=== PATIENT | male | born 1965 | race Caucasian/White ===

== ENCOUNTER → 2016-10-01 | Outpatient (CLI) | payer OTHER ==
[~2016-10-01] MED LIST: ASPIRIN81 M1 PO; CARAFATE1 GM PO; COQ10; FENOFIBRATE; FENOFIBRATE145 M1 PO; IPRATROPIUM BRO30 M1 NS; LIPITOR; LIPITOR80 MG PO; MOTRIN800 MG PO; NEXIUM40 MG PO; NEXIUM40 MG/PACK PO; NIACIN PO; NIACIN500 M5 PO; PERCOCET 325 MG1 TA2 PO; REGLAN10 M1 PO; VICODIN 5/500 505 MG PO; ZANTAC 300300 MG PO
--- NOTE | ~2016-10-01 | ST ---
[place], [place] EXERCISE STRESS TEST REPORT NAME: HERNANDEZ RASCON UNIT #: [id number] ROOM: DOCTOR: STEPHANI MUNROE MD BIRTHDATE: [birth year] DOS: 10/01/2016 The patient walked on a Vishnu protocol about 7 minutes. Heart rate is about 140, 85% of predicted heart rate. Procedure terminated with completion of protocol. Baseline cardiogram, sinus rhythm with exercise. No EKG changes. No chest pain. Blood pressure and heart rate response was normal. FINAL IMPRESSION: No EKG changes with exercise. No chest pain with exercise. No dysrhythmia with exercise. Blood pressure and heart rate response was normal. Nuclear images will be reported separately. STEPHANI MUNROE MD CM:STRESS:EXERCISE STRESS TEST REPORT [id number] NORM MUNROE MD
== END | disposition home or self-care (01) ==
LOC: CARD 09-24 08:30
DX: R07.9 Chest pain, unspecified (principal)

== ENCOUNTER → 2019-07-24 | Outpatient (CLI) | payer OTHER ==
[~2019-07-24] MED LIST changes: +DICYCLOMINE HCL10 MG PO; +ZANTAC 150150 MG PO
[2019-07-24 14:37] LABS: BASO # 0.1 10*3/uL (0.0-0.1); EOS # 0.1 10*3/uL (0.0-0.4); EOS % 1.4 % (1.0-4.0); HEMATOCRIT 51.4 % (42.0-52.0); HEMOGLOBIN 17.2 g/dl (14.0-18.0); LYMPH # 1.3 10*3/uL (1.3-4.4); LYMPH % 26.9 % (27.0-41.0); MEAN CELL VOLUME 83.8 fl (80.0-94.0); MEAN CORPUSCULAR HGB 28.1 pg (27.0-31.0); MEAN CORPUSCULAR HGB CONC 33.5 g/dl (33.0-37.0); MEAN PLATELET VOLUME 9.2 fl (9.6-12.3); MONO # 0.4 10*3/uL (0.1-1.0); NEUT % 61.3 % (47.0-73.0); PLATELET COUNT AUTOMATED 167 10*3/uL (130-400); RED BLOOD COUNT 6.13 10*6/uL (4.50-5.90); RED CELL DISTRI WIDTH 12.9 % (0-14.5); WHITE BLOOD COUNT 4.9 10*3/uL (4.8-10.8)
[2019-07-24 15:07] LABS: ALBUMIN 4.2 gm/dl (3.1-4.5); ALKALINE PHOSPHATASE 42 U/L (45-117); BUN 16 mg/dl (7-24); CHLORIDE 109 mmol/L (98-107); CHOLESTEROL 171 mg/dL (<200); CREATININE 1.42 mg/dL (0.70-1.30); HDL CHOLESTEROL 34 mg/dl (40-60); LDL CHOLESTEROL 102 mg/dL (9-159); SGOT/AST 25 IU/L (3-35); SGPT/ALT 38 U/L (12-78); SODIUM 140 mmol/L (136-145); TRIGLYCERIDES 174 mg/dl (<150); VLDL CHOLESTEROL 35 mg/dL (6-40)
== END | disposition home or self-care (01) ==
LOC: LAB 14:08
PROVIDERS: Family Medicine
DX: E78.2 Mixed hyperlipidemia (principal); R53.83 Other fatigue

== ENCOUNTER → 2019-11-27 | Outpatient (CLI) | payer OTHER ==
[2019-11-27 14:39] LABS: CLARITY CLEAR (CLEAR); COLOR YELLOW (YELLOW)
[2019-11-27 14:46] LABS: BILIRUBIN NEGATIVE (NEGATIVE); BLOOD NEGATIVE (NEGATIVE); GLUCOSE NEGATIVE (NEGATIVE); KETONE NEGATIVE (NEGATIVE); LEUKO ESTERASE NEGATIVE (NEGATIVE); NITRITE NEGATIVE (NEGATIVE); SPECIFIC GRAVITY 1.025 (1.005-1.030); UROBILINOGEN 0.2 E.U./dl (0.2-1.0)
[2019-11-27 14:52] LABS: BUN 18 mg/dl (7-24); CHLORIDE 108 mmol/L (98-107); CREATININE 1.12 mg/dL (0.70-1.30); POTASSIUM 3.9 mmol/L (3.5-5.1); SODIUM 138 mmol/L (136-145)
== END | disposition home or self-care (01) ==
LOC: LAB 14:15
PROVIDERS: Family Medicine
DX: N25.9 Disorder resulting from impaired renal tubular function, unspecified (principal)

== ENCOUNTER → 2020-07-22 | Outpatient (CLI) | payer OTHER ==
[2020-07-22 15:14] LABS: BUN 16 mg/dl (7-24); CHLORIDE 108 mmol/L (98-107); CHOLESTEROL 162 mg/dL (<200); CREATININE 1.33 mg/dL (0.70-1.30); HDL CHOLESTEROL 40 mg/dl (40-60); LDL CHOLESTEROL 100 mg/dL (9-159); POTASSIUM 4.1 mmol/L (3.5-5.1); SODIUM 140 mmol/L (136-145); TRIGLYCERIDES 109 mg/dl (<150); VLDL CHOLESTEROL 22 mg/dL (6-40)
== END | disposition home or self-care (01) ==
LOC: LAB 14:34
PROVIDERS: ATTEND Family Medicine
DX: E78.2 Mixed hyperlipidemia (principal); K21.9 Gastro-esophageal reflux disease without esophagitis

== ENCOUNTER → 2021-11-12 | Outpatient (CLI) | payer OTHER ==
[2021-11-12 09:30] LABS: BUN 20 mg/dl (7-24); CHLORIDE 109 mmol/L (98-107); CHOLESTEROL 167 mg/dL (<200); CREATININE 1.25 mg/dL (0.70-1.30); LDL CHOLESTEROL 76 mg/dL (9-159); POTASSIUM 3.8 mmol/L (3.5-5.1); SODIUM 141 mmol/L (136-145); TRIGLYCERIDES 276 mg/dl (<150)
== END | disposition home or self-care (01) ==
LOC: LAB 08:44
PROVIDERS: ATTEND Family Medicine
DX: E78.2 Mixed hyperlipidemia (principal)

== ENCOUNTER → 2022-03-29 | Outpatient (CLI) | payer OTHER ==
[2022-03-29 15:06] LABS: BUN 18 mg/dl (7-24); CHLORIDE 106 mmol/L (98-107); CHOLESTEROL 165 mg/dL (<200); CREATININE 1.32 mg/dL (0.70-1.30); LDL CHOLESTEROL 90 mg/dL (9-159); POTASSIUM 3.8 mmol/L (3.5-5.1); SODIUM 137 mmol/L (136-145); TRIGLYCERIDES 209 mg/dl (<150)
== END | disposition home or self-care (01) ==
LOC: LAB 01:43
PROVIDERS: ATTEND Family Medicine
DX: E78.2 Mixed hyperlipidemia (principal); R73.9 Hyperglycemia, unspecified

== ENCOUNTER 2023-08-09 13:44 | Emergency (ER) | payer OTHER ==
[~2023-08-09] VITALS: Ht 172.7 cm; Wt 99.3 kg
[2023-08-09 14:34] VITALS: BP 135/89
[2023-08-09] MEDS ORDERED: DOXEPIN HCL10 MG PO (14:43)
[2023-08-09] MEDS ORDERED: SEPTDS PO (16:18)
[2023-08-09] MEDS ORDERED: TRAMADOL HCL50 MG PO (16:18)
[2023-08-10] MEDS ORDERED: VITAMIN B1250 MCG PO (18:47)
== END 2023-08-09 17:00 | disposition home or self-care (01) ==
LOC: ED 13:44
DX: K61.1 Rectal abscess (principal); K21.9 Gastro-esophageal reflux disease without esophagitis; E78.00 Pure hypercholesterolemia, unspecified; Z90.49 Acquired absence of other specified parts of digestive tract; Z98.890 Other specified postprocedural states

== ENCOUNTER 2023-08-10 13:21 | Inpatient (IN) | payer OTHER ==
[~2023-08-10] VITALS: Ht 172.7 cm; Wt 96.6 kg
[~2023-08-10 13:21] MED LIST changes: +DOXEPIN HCL10 MG PO; +SEPTDS PO; +TRAMADOL HCL50 MG PO
[2023-08-10 13:36] VITALS: BP 132/79
[2023-08-10 14:10] LABS: BASO % 0.6 % (0.0-1.0); EOS # 0.1 10*3/uL (0.0-0.4); EOS % 0.9 % (1.0-4.0); LYMPH # 0.9 10*3/uL (1.3-4.4); LYMPH % 13.2 % (27.0-41.0); MEAN CELL VOLUME 82.1 fl (80.0-94.0); MEAN CORPUSCULAR HGB 28.2 pg (27.0-31.0); MEAN CORPUSCULAR HGB CONC 34.3 g/dl (33.0-37.0); MONO # 0.5 10*3/uL (0.1-1.0); MONO % 7.2 % (3.0-9.0); NEUT % 77.6 % (47.0-73.0); PLATELET COUNT AUTOMATED 157 10*3/uL (130-400); RED BLOOD COUNT 6.21 10*6/uL (4.50-5.90); RED CELL DISTRI WIDTH 12.7 % (0-14.5); WHITE BLOOD COUNT 6.4 10*3/uL (4.8-10.8)
[2023-08-10 14:31] LABS: ALKALINE PHOSPHATASE 48 U/L (46-116); BUN 15 mg/dl (9-23); CHLORIDE 107 mmol/L (98-107); POTASSIUM 3.6 mmol/L (3.4-5.1); SGPT/ALT 42 U/L (5-49)
[2023-08-10] MEDS ORDERED: VITAMIN B1250 MCG PO (18:47)
[2023-08-10 19:54] VITALS: BP 130/63
[2023-08-10 21:30] VITALS: BP 133/88
[2023-08-10 21:35] LABS: BILIRUBIN Negative (Negative); BLOOD Negative (Negative); CLARITY Clear (Clear); COLOR Yellow (Yellow); GLUCOSE Negative (Negative); KETONE Negative (Negative); LEUKO ESTERASE Negative (Negative); NITRITE Negative (Negative); PH 6.5 (4.5-8.0)
[2023-08-10 21:52] LABS: MUCOUS TRACE; WBC 0-2 wbc/hpf (0-5)
[2023-08-11 08:00] VITALS: BP 147/84
[2023-08-11 08:31] LABS: BASO % 0.5 % (0.0-1.0); EOS # 0.1 10*3/uL (0.0-0.4); EOS % 1.3 % (1.0-4.0); LYMPH # 0.8 10*3/uL (1.3-4.4); LYMPH % 12.5 % (27.0-41.0); MEAN CELL VOLUME 84.4 fl (80.0-94.0); MEAN CORPUSCULAR HGB 28.1 pg (27.0-31.0); MEAN CORPUSCULAR HGB CONC 33.3 g/dl (33.0-37.0); MEAN PLATELET VOLUME 8.6 fl (9.6-12.3); MONO # 0.5 10*3/uL (0.1-1.0); MONO % 8.3 % (3.0-9.0); NEUT # 4.8 10*3/uL (2.3-7.9); NEUT % 77.2 % (47.0-73.0); PLATELET COUNT AUTOMATED 144 10*3/uL (130-400); RED BLOOD COUNT 5.69 10*6/uL (4.50-5.90); WHITE BLOOD COUNT 6.3 10*3/uL (4.8-10.8)
[2023-08-11 08:55] LABS: ALKALINE PHOSPHATASE 40 U/L (46-116); BUN 12 mg/dl (9-23); CHLORIDE 109 mmol/L (98-107); POTASSIUM 3.9 mmol/L (3.4-5.1); SGPT/ALT 31 U/L (5-49); TOTAL PROTEIN 6.4 gm/dL (6.0-8.0)
[2023-08-11 12:00] VITALS: BP 137/89
[2023-08-11 16:00] VITALS: BP 140/80
[2023-08-11 20:00] VITALS: BP 139/80
[2023-08-12] VITALS: BP 130/70
[2023-08-12 07:19] LABS: BASO % 0.6 % (0.0-1.0); EOS # 0.1 10*3/uL (0.0-0.4); HEMATOCRIT 47.6 % (42.0-52.0); LYMPH # 0.9 10*3/uL (1.3-4.4); LYMPH % 19.1 % (27.0-41.0); MEAN CELL VOLUME 83.5 fl (80.0-94.0); MEAN CORPUSCULAR HGB 28.1 pg (27.0-31.0); MEAN CORPUSCULAR HGB CONC 33.6 g/dl (33.0-37.0); MEAN PLATELET VOLUME 8.6 fl (9.6-12.3); MONO # 0.5 10*3/uL (0.1-1.0); MONO % 9.8 % (3.0-9.0); NEUT # 3.2 10*3/uL (2.3-7.9); NEUT % 66.9 % (47.0-73.0); PLATELET COUNT AUTOMATED 160 10*3/uL (130-400); RED CELL DISTRI WIDTH 12.4 % (0-14.5); WHITE BLOOD COUNT 4.7 10*3/uL (4.8-10.8)
[2023-08-12 07:38] LABS: BUN 12 mg/dl (9-23); CHLORIDE 107 mmol/L (98-107)
[2023-08-12 08:00] VITALS: BP 147/95
[2023-08-12 12:00] VITALS: BP 141/79
[2023-08-12 17:00] VITALS: BP 151/88
== END 2023-08-12 17:15 | disposition home or self-care (01) | DRG 395 ==
LOC: ED 13:21 → 4E 14:49 → EDHOLD 14:49 → 4E 21:23
PROVIDERS: Emergency Medicine; Internal Medicine; Student in an Organized Health Care Education/Training Program; ADMIT Internal Medicine; ATTEND Internal Medicine
DX: K61.1 Rectal abscess (principal); K21.9 Gastro-esophageal reflux disease without esophagitis; R73.9 Hyperglycemia, unspecified; N18.31 Chronic kidney disease, stage 3a; R74.01 Elevation of levels of liver transaminase levels; E78.2 Mixed hyperlipidemia; K62.89 Other specified diseases of anus and rectum; Z82.3 Family history of stroke; Z82.49 Family history of ischemic heart disease and other diseases of the circulatory system